=== PATIENT | female | born 1965 | race Caucasian/White ===

== ENCOUNTER 2017-06-01 15:24 | Inpatient (IN) | payer BC ==
[~2017-06-01] VITALS: Ht 154.9 cm; Wt 77.1 kg
[2017-06-01 16:40] LABS: BASO # 0.1 x10^3/uL (0.0-0.2); BASO % 0 % (0-3); EOS % 1 % (0-3); HEMATOCRIT 32.8 % (36.0-47.0); HEMOGLOBIN 10.7 g/dL (12.0-15.5); LYMPH # 1.7 x10^3/uL (1.0-4.8); LYMPH % 13 % (24-48); MEAN CORPUSCULAR HEMOGLOBIN 26 pg (25-35); MEAN CORPUSCULAR HGB CONC 33 g/dL (31-37); MEAN CORPUSCULAR VOLUME 81 fL (79-100); MONO % 4 % (0-9); NEUT % 81 % (31-73); PLATELET COUNT 373 x10^3/uL (140-400); RED BLOOD COUNT 4.08 x10^6/uL (3.50-5.40); RED CELL DISTRIBUTION WIDTH 17.5 % (11.5-14.5); WHITE BLOOD COUNT 12.9 x10^3/uL (4.0-11.0)
[2017-06-01 16:49] LABS: INR 0.9 (0.8-1.1); PROTHROMBIN TIME PATIENT 11.2 SEC (11.7-14.0)
--- NOTE | 2017-06-01 16:50 | RAD ---
Indication change in mental status. Protocol study. Noncontrast images of the head were obtained. No prior imaging of the head is available. The calvarium appears unremarkable. The visualized paranasal sinuses appear normal. There is no subdural or epidural hematoma. There is no mass or midline shift. No hemorrhage is seen. No acute intracranial finding is apparent. IMPRESSION: No acute or significant finding seen in the head. PQRS Compliance Statement: One or more of the following individualized dose reduction techniques were utilized for this examination: 1. Automated exposure control 2. Adjustment of the mA and/or kV according to patient size 3. Use of iterative reconstruction technique
[2017-06-01 16:55] LABS: CALCIUM 9.2 mg/dL (8.5-10.1); GFR 58.9
[2017-06-01 17:00] LABS: ALBUMIN 3.8 g/dL (3.4-5.0); MAGNESIUM 1.5 mg/dL (1.8-2.4); TOTAL BILIRUBIN 0.1 mg/dL (0.2-1.0); TOTAL PROTEIN 7.5 g/dL (6.4-8.2)
[2017-06-01] MEDS ORDERED: ONDANSETRON PF 4 MG/2 ML VIAL. IV PRN (17:45)
--- NOTE | 2017-06-01 17:50 | PHYS DOC ---
Past Medical History Past Medical History: Anemia, Hypertension Past Surgical History: , Hysterectomy, Tonsillectomy, Tubal ligation Additional Information: 1/2 PK A DAY Alcohol Use: None Drug Use: None Adult General Chief Complaint Chief Complaint: SYNCOPE HPI HPI Patient is a 51 year old female presenting to the emergency department for a constellation of symptoms of altered mental status left arm numbness and weakness left leg weakness. Patient reportedly had a black out episode where she has remember anything for an hour while she was being taken to [place] and eating a Anpro[employer] she does not remember any of this although family says that she was acting normal. This numbness weakness of the left arm is quite ambiguous as patient says she woke up with the symptoms however then she said it was during her black out episode but I asked how she would know if she was having weakness and numbness while she was blacked out. Then she changed it back to his sometime before the blackout episode but after the morning. She has risk factors of diabetes and smoking with prior TIA in the past and she takes a baby dose of aspirin daily. Review of Systems Review of Systems Constitutional: Denies fever or chills [] Eyes: Denies change in visual acuity, redness, or eye pain [] HENT: Denies nasal congestion or sore throat [] Respiratory: Denies cough or shortness of breath [] Cardiovascular: No additional information not addressed in HPI [] GI: Denies abdominal pain, nausea, vomiting, bloody stools or diarrhea [] : Denies dysuria or hematuria [] Musculoskeletal: Denies back pain or joint pain [] Integument: Denies rash or skin lesions [] Neurologic: Denies headache, + weakness, sensory changes [] Physical Exam Physical Exam Constitutional: Well developed, well nourished, no acute distress, non-toxic appearance. [] HENT: Normocephalic, atraumatic, bilateral external ears normal, oropharynx moist, no oral exudates, nose normal. [] Eyes: PERRLA, EOMI, conjunctiva normal, no discharge. [] Neck: Normal range of motion, no tenderness, supple, no stridor. [] Cardiovascular:Heart rate regular rhythm, no murmur [] Lungs & Thorax: Bilateral breath sounds clear to auscultation [] Abdomen: Bowel sounds normal, soft, no tenderness, no masses, no pulsatile masses. [] Skin: Warm, dry, no erythema, no rash. [] Back: No tenderness, no CVA tenderness. [] Extremities: No tenderness, no cyanosis, no clubbing, ROM intact, no edema. [] Neurologic: Alert and oriented X 3, left tech intern slightly decreased compared to right. Dullness diffusely to sensation in the left arm. Finger to nose and heel to sun are normal. Current Patient Data Vital Signs Vital Signs Date Time Temp Pulse Resp B/P (MAP) Pulse Ox O2 Delivery O2 Flow Rate FiO2 06/01/17 16:14 98.3 90 16 191/86 (121) 98 Room Air 98.3 Lab Values Laboratory Tests Test 06/01/17 16:01 06/01/17 16:08 Glucose (Fingerstick) 153 mg/dL (70-99) H White Blood Count 12.9 x10^3/uL (4.0-11.0) H Red Blood Count 4.08 x10^6/uL (3.50-5.40) Hemoglobin 10.7 g/dL (12.0-15.5) L Hematocrit 32.8 % (36.0-47.0) L Mean Corpuscular Volume 81 fL (79-100) Mean Corpuscular Hemoglobin 26 pg (25-35) Mean Corpuscular Hemoglobin Concent 33 g/dL (31-37) Red Cell Distribution Width 17.5 % (11.5-14.5) H Platelet Count 373 x10^3/uL (140-400) Neutrophils (%) (Auto) 81 % (31-73) H Lymphocytes (%) (Auto) 13 % (24-48) L Monocytes (%) (Auto) 4 % (0-9) Eosinophils (%) (Auto) 1 % (0-3) Basophils (%) (Auto) 0 % (0-3) Neutrophils # (Auto) 10.4 x10^3uL (1.8-7.7) H Lymphocytes # (Auto) 1.7 x10^3/uL (1.0-4.8) Monocytes # (Auto) 0.6 x10^3/uL (0.0-1.1) Eosinophils # (Auto) 0.1 x10^3/uL (0.0-0.7) Basophils # (Auto) 0.1 x10^3/uL (0.0-0.2) Prothrombin Time 11.2 SEC (11.7-14.0) L Prothrombin Time INR 0.9 (0.8-1.1) PTT 29 SEC (24-38) Sodium Level 137 mmol/L (136-145) Potassium Level 4.0 mmol/L (3.5-5.1) Chloride Level 99 mmol/L (98-107) Carbon Dioxide Level 28 mmol/L (21-32) Anion Gap 10 (6-14) Blood Urea Nitrogen 10 mg/dL (7-20) Creatinine 1.0 mg/dL (0.6-1.0) Estimated GFR (Cockcroft-Gault) 58.9 BUN/Creatinine Ratio 10 (6-20) Glucose Level 106 mg/dL (70-99) H Calcium Level 9.2 mg/dL (8.5-10.1) Magnesium Level 1.5 mg/dL (1.8-2.4) L Total Bilirubin 0.1 mg/dL (0.2-1.0) L Aspartate Amino Transferase (AST) 13 U/L (15-37) L Alanine Aminotransferase (ALT) 20 U/L (14-59) Alkaline Phosphatase 88 U/L (46-116) Troponin I Quantitative < 0.017 ng/mL (0.000-0.055) EN-Dwx-Y-Type Natriuretic Peptide 234 pg/mL (0-124) H Total Protein 7.5 g/dL (6.4-8.2) Albumin 3.8 g/dL (3.4-5.0) Albumin/Globulin Ratio 1.0 (1.0-1.7) Thyroid Stimulating Hormone (TSH) 0.979 uIU/mL (0.358-3.74) Laboratory Tests 06/01/17 16:08 Laboratory Tests 06/01/17 16:08 EKG EKG Sinus rhythm at 87 bpm with normal axis no obvious ST elevation or depression and normal T waves. Radiology/Procedures Radiology/Procedures Indication change in mental status. Protocol study. Noncontrast images of the head were obtained. No prior imaging of the head is available. The calvarium appears unremarkable. The visualized paranasal sinuses appear normal. There is no subdural or epidural hematoma. There is no mass or midline shift. No hemorrhage is seen. No acute intracranial finding is apparent. IMPRESSION: No acute or significant finding seen in the head. PQRS Compliance Statement: One or more of the following individualized dose reduction techniques were utilized for this examination: 1. Automated exposure control 2. Adjustment of the mA and/or kV according to patient size 3. Use of iterative reconstruction technique DICTATED and SIGNED BY: RUSTY CHEEMA MD DATE: 06/01/17 7263 Course & Med Decision Making Course & Med Decision Making Patient with concerning symptoms for CVA. There is no accurate timeline on her symptoms so I do not want to give patient TPA. Patient has a NIH stroke scale of 2 based off sensation and left arm tech intern weakness. Patient will be admitted for further observation and treatment. Dragon Disclaimer Dragon Disclaimer This electronic medical record was generated, in whole or in part, using a voice recognition dictation system. Departure Departure Impression: Primary Impression: CVA (cerebral vascular accident) Additional Impressions: Elevated brain natriuretic peptide (BNP) level Leukocytosis Disposition: ADMITTED INPATIENT Admitting Physician: Other (REUSCH) Condition: STABLE Referrals: NO PCP (PCP) Problem Qualifiers Primary Impression: CVA (cerebral vascular accident) CVA mechanism: unspecified Qualified Codes: I63.9 - Cerebral infarction, unspecified ARABELLA RAGLAND DO Jun 01, 2017 17:50
[2017-06-01 18:01] LABS: BILIRUBIN,URINE NEGATIVE (NEG); GLUCOSE,URINE NEGATIVE (NEG); NITRITE,URINE NEGATIVE (NEG); PH,URINE 5.5; PROTEIN,URINE NEGATIVE (NEG-TRACE); UROBILINOGEN,URINE 0.2 mg/dL (0.2 mg/dL)
[2017-06-01 18:12] VITALS: BP 146/62
[2017-06-01 18:12] LABS: BACTERIA,URINE 0 /HPF (0-FEW); RBC,URINE 0 /HPF (0-2); SQUAMOUS EPITHELIAL CELL,UR FEW /LPF; WBC,URINE OCC /HPF (0-4)
--- NOTE | 2017-06-01 18:23 | EKG ---
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
[2017-06-01] MEDS ORDERED: ASPI-482 PO (20:59)
[2017-06-01] MEDS ORDERED: GLIP10TA13 PO (20:59)
[2017-06-01] MEDS ORDERED: INSU100I13 SQ (20:59)
[2017-06-01] MEDS ORDERED: METF-620 PO (20:59)
[2017-06-01] MEDS ORDERED: SIMV40TA PO (20:59)
[2017-06-01] MEDS ORDERED: DEXTROSE 50% 25 GM / 50ML DISP.SYRIN. IV PRN (21:45)
--- NOTE | 2017-06-01 22:15 | HP ---
ADMIT DATE: 06/01/2017 CHIEF COMPLAINT: Acute mental status changes. HISTORY OF PRESENT ILLNESS: The patient is a 51-year-old woman with diabetes mellitus who was brought in to the Emergency Room by her family after having episodes of altered mental status and collapse. She relates that she remembers going to [facility] with her and son to get supplies. She apparently was not acting quite right and family suspected that she may be low on her blood sugar. The patient herself actually does not remember any further details until an hour later. According to her family, however, they stopped at [facility] to give her some food. She apparently went into the bathroom and when she did not return, family went in and found her on the floor having urinated herself. She apparently was still out of sorts, groggy and decided to take her home. They gave her orange juice and she is did indeed slowly improve. When she realized what had happened, she had her family bring her to the Emergency Room. In the Emergency Room, blood sugar actually was high. She was back to her normal state. Nobody noticed the incident in the bathroom at [facility]. The patient herself relates that her blood sugar control is actually typically very tight, running under 100. More recently, she actually has switched jobs as she has moved back to [place] to be supportive to her father. She is now working days instead of nights, continuing on her 30 units of Lantus q.a.m. and noticing that her blood sugars drop to 40s and 50s frequently. PAST MEDICAL HISTORY: Diabetes mellitus. She also is on statin and aspirin in has been on lisinopril in the past. No heart history in her. FAMILY HISTORY: Positive for diabetes in father. SOCIAL HISTORY: Lives with her family. No toxic habits. ALLERGIES: No known drug allergies. MEDICATIONS: MAR reconciled with home medications. REVIEW OF SYSTEMS: Positive as per history of present illness. Her mental status now is completely back to baseline. She denies any nausea, vomiting, headaches, vision problems, dizziness or other issues in entire rest of organ system review. PHYSICAL EXAMINATION: VITAL SIGNS: From today show a blood pressure of 146/62, heart rate of 87, respiratory rate at 18. She is afebrile. GENERAL: This is a 51-year-old overweight woman, alert and oriented, in no acute distress. HEENT: Shows no scleral icterus. NECK: Supple, without any lymphadenopathy. LUNGS: Clear to auscultation bilaterally. HEART: Regular rate and rhythm. ABDOMEN: Has positive bowel sounds, soft, nontender. EXTREMITIES: Show no edema. SKIN: Warm, soft and dry without any lesions. LABORATORY DATA: CBC with a WBC of 12.9, hemoglobin 10.7, platelets of 373, MCV is 81. Chemistries with a BUN and creatinine of 10 and 1.0. Electrolytes within normal limits. Mag at 1.5. Liver function tests within normal, albumin at 3.8. Initial glucose fingerstick 153, repeat on blood was 106. UA negative for infection. IMAGING: CT of the head showed no acute findings. ASSESSMENT AND PLAN: The patient is a 51-year-old diabetic with rather tight control who now presents with an episode of altered mental status. My strong suspicion is that this was a hypoglycemic episode. Unfortunately, did not check her fingersticks at home or bring her to the Emergency Room. In the Emergency Room, blood sugars had recovered. Although she had urinary incontinence with this episode, I seriously doubt that this constitutes a seizure. We will monitor her blood sugars closely from here on out. She clearly is somewhat overdosed on all her medications. She would like to get rid of Lantus if at all possible. We will have it for now and monitor closely with insulin sliding scale. We will obtain hemoglobin A1c as well. She relates that she has been on the same dose even when she was working nights, i.e. sleeping during the day. My suspicion is that she is just now aware of her hypoglycemic episodes as in the past she was probably asleep during the events. We will continue all her other home medications. She has not been on lisinopril really recently, mistaking Zocor for its replacement. I discussed the medications with her and will start her back on lisinopril. TIFFANIE ANDERSON MD DR: PATTIE/nts JOB#: [id number] / [id number] BLAS
[2017-06-01] MEDS: SIMVASTATIN 40 MG TABLET. PO SCH ×2 (22:30→22:32)
[2017-06-01 23:35] VITALS: BP 140/89
[2017-06-02 03:00] VITALS: BP_SYST 135; BP_SYST 140; BP_DIAS 74; BP_DIAS 89
--- NOTE | 2017-06-02 04:08 | ACF ---
Admission Forms Criteria TELEMETRY CARE Telemetry Admission Guidelines (Place 'X' for any and all applicable criteria): Admission to telemetry [A] may be indicated for ANY ONE of the following(1)(2)(3 )(4)(5): [ ]I. Cardiac disease, including ANY ONE of the following (9)(10)(11)(12)(13 ): [ ]a) Postacute TX [ ]b) Low-risk patients with ST-segment elevation TX who have undergone successful percutaneous coronary intervention [ ]c) Unstable angina [ ]d) Suspected TX (until it is ruled out) [ ]e) Post cardiac surgery (first 48 to 72 hours unless complications occur) [ ]f) Acute arrhythmias (including significant tachycardia or bradycardia) [B] [ ]g) Firing of an implantable cardioverter defibrillator [C] [ ]h) Suspected pacemaker or implantable cardioverter defibrillator malfunction (10) [ ]i) New administration or adjustment of an antiarrhythmic drug [D ] [ ]j) Child admitted for acute congestive heart failure [ ]j) Long QT syndrome [ ]k) Advanced heart block (eg, second-degree Mobitz type II, third- degree heart block) [ ]l) Acute myocarditis or pericarditis [ ]m) Short-term (ambulatory or inpatient) monitoring after a cardiac procedure as indicated by ANY ONE of the following [E]: [ ]i) Electrophysiologic studies [ ]ii) Percutaneous coronary intervention with stent placement [ ]iii) Pacemaker placement with cardiac conduction defect [ ]iv) Implantable cardiac defibrillator placement [ ]II. Drug overdose or poisoning with substance that causes arrhythmias or QT prolongation (eg, phenothiazines, sympathomimetic agents, cyclic antidepressants, digitalis, antiarrhythmic drugs)(15) [ ]III. Short-term (ambulatory or inpatient) monitoring after therapeutic or diagnostic procedure requiring conscious sedation or anesthesia (eg, endoscopy, elective cardioversion) [X]IV. Acute cerebrovascular even[F](18) [ ]V. Massive blood transfusion (eg, at least 10 units of packed red blood cells in 24 hours) [ ]. Variceal bleeding after endoscopy, sclerotherapy, or IV vasopressin [ ]VII. Uncorrected electrolyte abnormalities associated with an increased risk of dangerous arrhythmia [G]; examples include [ ]a) Hyperkalemia with attributable ECG changes [ ]b) Potassium greater than 6.5 mmol/L (mEq/L) in a patient without history of chronic renal disease [ ]c) Prolonged QT attributed to hypokalemia, hypomagnesemia, or hypocalcemia [ ]VIII.Unexplained syncope or other neurologic event suspected of being due to arrhythmia due to a finding that increases risk; examples include(19)(20)(21): [ ]a) High-risk ECG findings (eg, bifascicular block, bradycardia, abnormal QT interval, ventricular pre- excitation) [ ]b) History of previous syncope due to arrhythmia [ ]c) Abnormal ventricular function (eg, reduced ejection fraction ) [ ]d) Exertional or supine syncope [ ]e) Concerning syncope characteristics (eg, sudden loss of consciousness without prodrome) [ ]f) Family history of sudden [ ]g) Use of arrhythmogenic medication [ ]h) Suspected cardiac ischemia [ ]i) Known channelopathy (eg, long QT syndrome, Brugada syndrome, or catecholaminergic paroxysmal ventricular tachycardia) [ ]j) Known structural heart disease (eg, hypertrophic cardiomyopathy , severe valvular disease) [ ]k) Palpitations preceding syncope The original [email or web address] content created by [email or web address] has been revised. The portions of the content which have been revised are identified through the use of italic text or in bold, and [employer] [facility] has neither reviewed nor approved the modified material. All other unmodified content is copyright [email or web address]. Please see references footnoted in the original [email or web address] edition 2015 Admission Criteria Met?: Yes ALEIDA RALPH Jun 02, 2017 04:08
[2017-06-02 05:29] LABS: BASO % 1 % (0-3); EOS % 3 % (0-3); HEMATOCRIT 30.5 % (36.0-47.0); HEMOGLOBIN 10.5 g/dL (12.0-15.5); LYMPH # 2.3 x10^3/uL (1.0-4.8); LYMPH % 33 % (24-48); MEAN CORPUSCULAR HEMOGLOBIN 27 pg (25-35); MEAN CORPUSCULAR HGB CONC 34 g/dL (31-37); MEAN CORPUSCULAR VOLUME 79 fL (79-100); MONO % 7 % (0-9); NEUT % 57 % (31-73); PLATELET COUNT 334 x10^3/uL (140-400); RED BLOOD COUNT 3.85 x10^6/uL (3.50-5.40); RED CELL DISTRIBUTION WIDTH 17.8 % (11.5-14.5); WHITE BLOOD COUNT 6.9 x10^3/uL (4.0-11.0)
[2017-06-02 05:51] LABS: CALCIUM 8.6 mg/dL (8.5-10.1); CREATININE 0.9 mg/dL (0.6-1.0); GFR 66.5; POTASSIUM 3.6 mmol/L (3.5-5.1)
[2017-06-02 06:51] VITALS: BP 129/72
[2017-06-02] MEDS ORDERED: INSULIN DETEMIR 300 UNITS/3 ML INSULN.PEN. SQ SCH (07:30)
--- NOTE | 2017-06-02 07:36 | RAD ---
Indication CVA. Protocol exam. A single view of the chest was obtained. No prior imaging of the chest is available. The heart, pulmonary vessels and mediastinum appear normal. The lungs are clear. There is no significant pleural fluid. There is no pneumothorax. IMPRESSION: Normal single view of the chest
[2017-06-02] MEDS: INSULIN ASPART 300 UNITS/3 ML INSULN.PEN SQ SCH ×2 (08:00→12:00)
[2017-06-02] MEDS: glipiZIDE 5 MG TABLET PO SCH ×2 (08:41→16:30)
[2017-06-02] MEDS ORDERED: ASPIRIN ENTERIC COATED 81 MG TABLET.DR. PO SCH (09:00)
[2017-06-02] MEDS ORDERED: LISINOPRIL 10 MG TABLET PO SCH (09:00)
[2017-06-02 11:26] VITALS: BP 127/62
[2017-06-02 14:53] VITALS: BP 130/79
--- NOTE | 2017-06-02 15:24 | RAD ---
INDICATION: Left-sided numbness and weakness. TECHNIQUE: Sagittal T1, axial T1, axial T2, axial FLAIR, axial T2 gradient, coronal T2, and diffusion imaging with ADC map was performed. Comparison is a CT head from one day earlier. FINDINGS: The ventricles and sulci are within normal limits for age. There is no acute intracranial hemorrhage or extra-axial fluid collection. There is no mass effect or midline shift. There is no restricted diffusion to suggest an acute infarct. Cervicomedullary junction is unremarkable. Thin rim of pituitary tissue is noted inferiorly within the sella. There is increased CSF within the sella. The sella does not appear expanded. Intracranial flow voids are preserved. There is minimal mucosal thickening in the paranasal sinuses. There is minimal nonspecific fluid in the optic sheaths. IMPRESSION: 1. No acute intracranial findings. 2. Thin rim of pituitary tissue on the floor the sella, with increased CSF in the sella and with fluid within the optic sheaths. These are nonspecific findings that can be associated with elevated intracranial pressures. Electronically signed by: Nehemiah Landa MD (06/02/2017 3:20 PM) [id number]
[2017-06-02] MEDS ORDERED: LISI10TA2 PO (16:19)
--- NOTE | 2017-06-02 18:52 | PDOC2 ---
NEUROLOGY CONSULT Date of Admission Date of Admission DATE: 06/02/17 TIME: 18:43 Reason for Consult Reason for Consult: IMPRESSION: Left UE numbness and weakness. Syncopal spell. Blackouts episodes. Hypoglycemia, glucose level 30. DM HTN HLD TIA Hx Smoking. Obesity. No evidence of acute CVA this time. RECOMMENDATIONS/PLAN: Brain MRI w/o contrast. ASA daily. Zocor 40 mg HS. Treat medical diseases. FU with PCP. FU with Neurology. HISTORY OF THE PRESENT ILLNESS: 51-y-old female patient with above medical diseases developed symptoms of left UE numbness and weakness to come to the ER of [facility] for evaluation. She stated she had TIA in the past, but different form this time of her numbness and weakness. Her right side was not involved. PAST MEDICAL HISTORY: Diabetes mellitus. She also is on statin and aspirin in has been on lisinopril in the past. No heart history in her. FAMILY HISTORY: Positive for diabetes in father. SOCIAL HISTORY: Lives with her family. She smokes 1/2 pack a day for about 10 years. ALLERGIES: No known drug allergies. MEDICATIONS: Refer to MAR. REVIEW OF SYSTEMS: Constitutional: No malnutrition, weight loss, cachexia. Head: No recent traumatic brain or head injury. Skin: No edema, or rash. Ear: No infection. Eyes: No vision loss or color blindness. Nose: No bleeding or purulent discharges. Hearing: No hearing decrease. Neck: No injury. Breast: No history of cancer, masses,or discharges. Cardiac: HTN, HLD. Pulmonary: No pneumonia, COPD. GI: No GI ulcer, GI bleeding. Urinary/genital: UTI. Endocrinologic: Diabetes Mellitus, obesity. Skeletomuscular: No muscular atrophy, deformity. Neurological: see HP. Psychiatric: Denies drug use/abuse. Otherwise, not [id number] review of systems. PHYSICAL EXAMINATION: General appearance is in subacute distress. HEENT: Normocephalic and nontraumatic. Eyes, nose, ears, and throat are unremarkable. Neck is supple. No lymphadenopathy. No bruits are heard over the carotid artery. No crepitus. Cardiovascular: S1, S2, regular rate and rhythm. Pulmonary: Clear to auscultation bilaterally. Abdomen: Bowel sounds are positive. Abdomen is soft, nontender, and nondistended. Extremities: No rash, lesions, or edema. No restriction of range of motion NEUROLOGICAL EXAMINATION: Alert Oriented to time, place and person. PERRL. EOMI. CN: no focal findings. Muscle tone: within normal. Muscle strength: 5- DTR: 2 Plantar reflex: Flexor response bilaterally Gait: not examined in bed. Sensory exam: no abnormal findings. No cerebellar signs elicited. F-T-N test accurate. Current Medications Current Medications Current Medications Ondansetron HCl (Zofran) 4 mg PRN Q8HRS PRN IV NAUSEA/VOMITING; Start 06/01/17 at 17:45; Stop 06/02/17 at 16:54; Status DC Aspirin (Ecotrin) 81 mg DAILY PO Last administered on 06/02/17 08:41; Start at 09:00; Stop 06/02/17 at 16:54; Status DC Metformin HCl (Glucophage) 1,000 mg BIDWMEALS PO Last administered on 08:41; Start 06/02/17 at 08:00; Stop 06/02/17 at 16:54; Status DC Simvastatin (Zocor) 40 mg QHS PO ; Start 06/01/17 at 22:00; Stop 06/02/17 at 16: 54; Status DC Glipizide (Glucotrol) 10 mg BIDBFRMEAL PO Last administered on 06/02/17 08:41 ; Start 06/02/17 at 07:30; Stop 06/02/17 at 16:54; Status DC Insulin Detemir (Levemir) 15 units DAILYAC SQ Last administered on 06/02/17 08 :47; Start 06/02/17 at 07:30; Stop 06/02/17 at 16:54; Status DC Insulin Aspart (NovoLOG) 0-5 UNITS TIDWMEALS SQ ; Start 06/02/17 at 08:00; Stop 06/02/17 at 16:54; Status DC Dextrose (Dextrose 50%-Water Syringe) 12.5 gm PRN Q15MIN PRN IV SEE COMMENTS Last administered on 06/02/17 12:17; Start 06/01/17 at 21:45; Stop 06/02/17 at 16:54; Status DC Lisinopril (Prinivil) 10 mg DAILY PO Last administered on 9/14/17at 08:41; Start 06/02/17 at 09:00; Stop 06/02/17 at 16:54; Status DC Active Scripts Active Lisinopril 10 Mg Tablet 10 Mg PO DAILY Reported Aspir 81 (Aspirin) 81 Mg Tablet.dr 81 Mg PO DAILY Zocor (Simvastatin) 40 Mg Tablet 1 Tab PO DAILY Glipizide 10 Mg Tablet 1 Tab PO BID Metformin Hcl 1,000 Mg Tablet 1,000 Mg PO BIDWMEALS Allergies Allergies: Coded Allergies: No Known Drug Allergies (Unverified , 06/01/17) Vitals VITALS Vital Signs Date Time Temp Pulse Resp B/P (MAP) Pulse Ox O2 Delivery O2 Flow Rate FiO2 06/02/17 14:53 97.4 69 18 130/79 (96) 95 Room Air 97.4 Labs Labs Laboratory Tests Test 06/01/17 16:01 06/01/17 16:08 06/01/17 17:35 06/02/17 04:20 Glucose (Fingerstick) 153 mg/dL (70-99) White Blood Count 12.9 x10^3/uL (4.0-11.0) 6.9 x10^3/uL (4.0-11.0) Red Blood Count 4.08 x10^6/uL (3.50-5.40) 3.85 x10^6/uL (3.50-5.40) Hemoglobin 10.7 g/dL (12.0-15.5) 10.5 g/dL (12.0-15.5) Hematocrit 32.8 % (36.0-47.0) 30.5 % (36.0-47.0) Mean Corpuscular Volume 81 fL (79-100) 79 fL (79-100) Mean Corpuscular Hemoglobin 26 pg (25-35) 27 pg (25-35) Mean Corpuscular Hemoglobin Concent 33 g/dL (31-37) 34 g/dL (31-37) Red Cell Distribution Width 17.5 % (11.5-14.5) 17.8 % (11.5-14.5) Platelet Count 373 x10^3/uL (140-400) 334 x10^3/uL (140-400) Neutrophils (%) (Auto) 81 % (31-73) 57 % (31-73) Lymphocytes (%) (Auto) 13 % (24-48) 33 % (24-48) Monocytes (%) (Auto) 4 % (0-9) 7 % (0-9) Eosinophils (%) (Auto) 1 % (0-3) 3 % (0-3) Basophils (%) (Auto) 0 % (0-3) 1 % (0-3) Neutrophils # (Auto) 10.4 x10^3uL (1.8-7.7) 3.9 x10^3uL (1.8-7.7) Lymphocytes # (Auto) 1.7 x10^3/uL (1.0-4.8) 2.3 x10^3/uL (1.0-4.8) Monocytes # (Auto) 0.6 x10^3/uL (0.0-1.1) 0.5 x10^3/uL (0.0-1.1) Eosinophils # (Auto) 0.1 x10^3/uL (0.0-0.7) 0.2 x10^3/uL (0.0-0.7) Basophils # (Auto) 0.1 x10^3/uL (0.0-0.2) 0.0 x10^3/uL (0.0-0.2) Prothrombin Time 11.2 SEC (11.7-14.0) Prothromb Time International Ratio 0.9 (0.8-1.1) Activated Partial Thromboplast Time 29 SEC (24-38) Sodium Level 137 mmol/L (136-145) 144 mmol/L (136-145) Potassium Level 4.0 mmol/L (3.5-5.1) 3.6 mmol/L (3.5-5.1) Chloride Level 99 mmol/L (98-107) 104 mmol/L (98-107) Carbon Dioxide Level 28 mmol/L (21-32) 30 mmol/L (21-32) Anion Gap 10 (6-14) 10 (6-14) Blood Urea Nitrogen 10 mg/dL (7-20) 11 mg/dL (7-20) Creatinine 1.0 mg/dL (0.6-1.0) 0.9 mg/dL (0.6-1.0) Estimated GFR (Cockcroft-Gault) 58.9 66.5 BUN/Creatinine Ratio 10 (6-20) Glucose Level 106 mg/dL (70-99) 69 mg/dL (70-99) Calcium Level 9.2 mg/dL (8.5-10.1) 8.6 mg/dL (8.5-10.1) Magnesium Level 1.5 mg/dL (1.8-2.4) Total Bilirubin 0.1 mg/dL (0.2-1.0) Aspartate Amino Transf (AST/SGOT) 13 U/L (15-37) Alanine Aminotransferase (ALT/SGPT) 20 U/L (14-59) Alkaline Phosphatase 88 U/L (46-116) Troponin I Quantitative < 0.017 ng/mL (0.000-0.055) BH-Odh-K-Type Natriuretic Peptide 234 pg/mL (0-124) Total Protein 7.5 g/dL (6.4-8.2) Albumin 3.8 g/dL (3.4-5.0) Albumin/Globulin Ratio 1.0 (1.0-1.7) Thyroid Stimulating Hormone (TSH) 0.979 uIU/mL (0.358-3.74) Urine Collection Type Unknown Urine Color Yellow Urine Clarity Clear Urine pH 5.5 Urine Specific [place] <=1.005 Urine Protein Negative mg/dL (NEG-TRACE) Urine Glucose (UA) Negative mg/dL (NEG) Urine Ketones (Stick) Negative mg/dL (NEG) Urine Blood Negative (NEG) Urine Nitrite Negative (NEG) Urine Bilirubin Negative (NEG) Urine Urobilinogen Dipstick 0.2 mg/dL (0.2 mg/dL) Urine Leukocyte Esterase Negative (NEG) Urine RBC 0 /HPF (0-2) Urine WBC Occ /HPF (0-4) Urine Squamous Epithelial Cells Few /LPF Urine Bacteria 0 /HPF (0-FEW) Test 06/02/17 07:55 06/02/17 12:10 06/02/17 13:06 Glucose (Fingerstick) 90 mg/dL (70-99) 31 mg/dL (70-99) 153 mg/dL (70-99) Laboratory Tests Test 06/02/17 04:20 06/02/17 07:55 06/02/17 12:10 06/02/17 13:06 White Blood Count 6.9 x10^3/uL (4.0-11.0) Red Blood Count 3.85 x10^6/uL (3.50-5.40) Hemoglobin 10.5 g/dL (12.0-15.5) Hematocrit 30.5 % (36.0-47.0) Mean Corpuscular Volume 79 fL (79-100) Mean Corpuscular Hemoglobin 27 pg (25-35) Mean Corpuscular Hemoglobin Concent 34 g/dL (31-37) Red Cell Distribution Width 17.8 % (11.5-14.5) Platelet Count 334 x10^3/uL (140-400) Neutrophils (%) (Auto) 57 % (31-73) Lymphocytes (%) (Auto) 33 % (24-48) Monocytes (%) (Auto) 7 % (0-9) Eosinophils (%) (Auto) 3 % (0-3) Basophils (%) (Auto) 1 % (0-3) Neutrophils # (Auto) 3.9 x10^3uL (1.8-7.7) Lymphocytes # (Auto) 2.3 x10^3/uL (1.0-4.8) Monocytes # (Auto) 0.5 x10^3/uL (0.0-1.1) Eosinophils # (Auto) 0.2 x10^3/uL (0.0-0.7) Basophils # (Auto) 0.0 x10^3/uL (0.0-0.2) Sodium Level 144 mmol/L (136-145) Potassium Level 3.6 mmol/L (3.5-5.1) Chloride Level 104 mmol/L (98-107) Carbon Dioxide Level 30 mmol/L (21-32) Anion Gap 10 (6-14) Blood Urea Nitrogen 11 mg/dL (7-20) Creatinine 0.9 mg/dL (0.6-1.0) Estimated GFR (Cockcroft-Gault) 66.5 Glucose Level 69 mg/dL (70-99) Calcium Level 8.6 mg/dL (8.5-10.1) Glucose (Fingerstick) 90 mg/dL (70-99) 31 mg/dL (70-99) 153 mg/dL (70-99) ARTIE SHOOK MD Jun 02, 2017 18:52
== END 2017-06-02 16:41 | disposition home or self-care (01) | DRG 948 ==
LOC: ER 15:24 → 6 SOUTH 16:59
PROVIDERS: ADMIT Internal Medicine Hematology & Oncology; ATTEND Internal Medicine Hematology & Oncology
DX: R53.1 Weakness (principal); E11.649 Type 2 diabetes mellitus with hypoglycemia without coma; D72.829 Elevated white blood cell count, unspecified; E66.9 Obesity, unspecified; Z68.32 Body mass index [BMI] 32.0-32.9, adult; E78.5 Hyperlipidemia, unspecified; F17.210 Nicotine dependence, cigarettes, uncomplicated; I10 Essential (primary) hypertension; Z83.3 Family history of diabetes mellitus; Z86.73 Personal history of transient ischemic attack (TIA), and cerebral infarction without residual deficits; Z90.710 Acquired absence of both cervix and uterus; Z98.51 Tubal ligation status
CPT/HCPCS: 36415; 70450; 70551; 71010; 80048; 80053; 81001; 82962; 83036; 83735; 83880; 84443; 84484; 85025; 85610; 85730; 93005; J1815; J7042; 99285-25

== ENCOUNTER 2019-01-12 18:26 | Emergency (ER) | payer BC ==
[~2019-01-12] VITALS: Ht 154.9 cm; Wt 72.6 kg
[~2019-01-12 18:26] MED LIST: ASPI-482 PO; GLIP10TA13 PO; INSU100I13 SQ; LISI10TA2 PO; METF10007 PO; SIMV40TA PO
[2019-01-12 19:40] LABS: BILIRUBIN,URINE NEGATIVE (NEG); CLARITY,URINE CLEAR; COLOR,URINE YELLOW; NITRITE,URINE NEGATIVE (NEG); PH,URINE 5.5; PROTEIN,URINE NEGATIVE (NEG-TRACE); UROBILINOGEN,URINE 0.2 mg/dL (0.2 mg/dL)
[2019-01-12 19:40] LABS: BASO # 0.1 x10^3/uL (0.0-0.2); BASO % 1 % (0-3); EOS # 0.3 x10^3/uL (0.0-0.7); EOS % 3 % (0-3); HEMATOCRIT 31.9 % (36.0-47.0); HEMOGLOBIN 10.4 g/dL (12.0-15.5); LYMPH # 2.9 x10^3/uL (1.0-4.8); LYMPH % 30 % (24-48); MEAN CORPUSCULAR HEMOGLOBIN 23 pg (25-35); MEAN CORPUSCULAR HGB CONC 33 g/dL (31-37); MEAN CORPUSCULAR VOLUME 71 fL (79-100); MONO # 0.6 x10^3/uL (0.0-1.1); MONO % 6 % (0-9); NEUT # 5.9 x10^3uL (1.8-7.7); NEUT % 61 % (31-73); PLATELET COUNT 385 x10^3/uL (140-400); RED BLOOD COUNT 4.47 x10^6/uL (3.50-5.40); WHITE BLOOD COUNT 9.7 x10^3/uL (4.0-11.0)
[2019-01-12] MEDS ORDERED: ONDANSETRON PF 4 MG/2 ML VIAL. IV ONE (19:45)
[2019-01-12] MEDS ORDERED: fentaNYL PF VIAL 100 MCG/2 ML VIAL IV ONE ×3 (19:45→23:30)
[2019-01-12 19:48] LABS: CALCIUM 9.4 mg/dL (8.5-10.1); CREATININE 0.8 mg/dL (0.6-1.0); GFR 75.6
[2019-01-12 19:53] LABS: SQUAMOUS EPITHELIAL CELL,UR FEW /LPF
[2019-01-12 19:54] LABS: ALBUMIN/GLOBULIN RATIO 1.1 (1.0-1.7); TOTAL BILIRUBIN 0.2 mg/dL (0.2-1.0); TOTAL PROTEIN 7.7 g/dL (6.4-8.2)
[2019-01-12 19:55] LABS: BACTERIA,URINE 0 /HPF (0-FEW); RBC,URINE 0 /HPF (0-2); WBC,URINE OCC /HPF (0-4)
[2019-01-12 20:21] LABS: ANISOCYTOSIS SLIGHT; HYPOCHROMIA SLIGHT; MICROCYTOSIS MOD; PLT ESTIMATE ADEQUATE (ADEQUATE); POIKILOCYTOSIS SLIGHT
[2019-01-12 20:44] VITALS: BP 151/82
--- NOTE | 2019-01-12 21:20 | RAD ---
Clinical History: Right upper quadrant pain and nausea and vomiting for 3 days Technique: Sonographic examination of the right upper quadrant of the abdomen was performed and multiple static images were obtained. Comparison: none Findings: The majority of the liver is visualized and appears homogeneous. The common bile duct appears normal and measures 3.5 mm in diameter. The gallbladder appears normal. The pancreas is not well visualized due to overlying bowel gas. The right kidney measures 10.5 cm in length. There is lobulation consistent with cortical scar. The right renal pelvis is mildly prominent. Impression: Mild right hydronephrosis. No evidence of gallbladder disease. Electronically signed by: Samson Herrera III, MD (01/12/2019 9:17 PM) [facility]
--- NOTE | 2019-01-12 22:22 | RAD ---
Abdominal and Pelvis CT, Without Contrast: History: Right sided abdominal pain. Comparison: None. Procedure: Axial images are obtained of the abdomen and pelvis, without IV or oral contrast. CT Abdomen without Contrast: Findings: Evaluation of solid organs is limited without contrast. Evaluation of stomach and bowel is limited without oral contrast. Liver: Normal. Spleen: Normal. Pancreas: Normal. Adrenal Glands: Normal. Kidneys: Normal. There is no free air or free fluid. There is no lymphadenopathy. The appendix is normal. Impression: Please see CT Pelvis without Contrast. End Impression. CT Pelvis without Contrast: Findings: The urinary bladder appears normal. There is no free fluid. There is no lymphadenopathy. There is no pericolonic inflammation identified. Impression: No evidence of urolithiasis or obstructive uropathy. End impression PQRS Compliance Statement: One or more of the following individualized dose reduction techniques were utilized for this examination: 1. Automated exposure control 2. Adjustment of the mA and/or kV according to patient size 3. Use of iterative reconstruction technique Electronically signed by: Samson Herrera III, MD (01/12/2019 10:19 PM) [facility]
[2019-01-12] MEDS ORDERED: ONDA4TAB7 PO (23:26)
[2019-01-12] MEDS ORDERED: HYDR-3164 PO (23:26)
--- NOTE | 2019-01-12 23:26 | PHYS DOC ---
Past Medical History Past Medical History: Anemia, Diabetes-Type II, Hypertension, Other Additional Past Medical Histor: SLUDGE IN GALLBLADDER Past Surgical History: , Hysterectomy, Tonsillectomy, Tubal ligation Additional Information: 0.5 PPD Alcohol Use: None Drug Use: None Adult General Chief Complaint Chief Complaint: ABDOMINAL PAIN HPI HPI Patient is a 53 year old F who presents with R upper abd pain for the last 2-3 days. She states the pain wraps around to her back and does seem to be a lot worse after eating. She did have studies done in the past that showed gallbladder sludge but states she has not been able to follow up for any further treatment. Pt denies vomiting or diarrhea. She has been nauseated. She denies fever. Review of Systems Review of Systems Constitutional: Denies fever or chills [] Eyes: Denies change in visual acuity, redness, or eye pain [] HENT: Denies nasal congestion or sore throat [] Respiratory: Denies cough or shortness of breath [] Cardiovascular: No additional information not addressed in HPI [] GI: Reports abdominal pain and nausea. Denies constipation or diarrhea. : Denies dysuria or hematuria [] Musculoskeletal: Denies back pain or joint pain [] Integument: Denies rash or skin lesions [] Neurologic: Denies headache, focal weakness or sensory changes [] All other systems were reviewed and found to be within normal limits, except as documented in this note. Current Medications Current Medications Current Medications Medications (Trade) Dose Ordered Sig/Radha Start Time Stop Time Status Last Admin Dose Admin Fentanyl Citrate (Fentanyl 2ml Vial) 50 mcg 1X ONCE 01/12/19 23:30 01/12/19 23:31 DC 01/12/19 23:51 50 MCG Ondansetron HCl (Zofran) 4 mg 1X ONCE 01/12/19 19:45 01/12/19 19:46 DC 01/12/19 19:40 4 MG Allergies Allergies Allergies Coded Allergies Type Severity Reaction Last Updated Verified No Known Drug Allergies 06/01/17 No Physical Exam Physical Exam Constitutional: Well developed, well nourished, no acute distress, non-toxic appearance. Uncomfortable. HENT: Normocephalic, atraumatic, bilateral external ears normal, oropharynx moist, no oral exudates, nose normal. [] Eyes: PERRLA, EOMI, conjunctiva normal, no discharge. [] Neck: Normal range of motion, no tenderness, supple, no stridor. [] Cardiovascular:Heart rate regular rhythm, no murmur [] Lungs & Thorax: Bilateral breath sounds clear to auscultation [] Abdomen: Bowel sounds normal, soft. Tender to palpation over RUQ and around to back. Skin: Warm, dry, no erythema, no rash. [] Back: No tenderness. [] Extremities: No tenderness, no cyanosis, no clubbing, ROM intact, no edema. [] Neurologic: Alert and oriented X 3, normal motor function, normal sensory function, no focal deficits noted. [] Psychologic: Affect normal, judgement normal, mood normal. [] Current Patient Data Vital Signs Vital Signs Date Time Temp Pulse Resp B/P (MAP) Pulse Ox O2 Delivery O2 Flow Rate FiO2 01/12/19 23:51 18 96 Room Air 01/12/19 20:44 66 151/82 (105) 01/12/19 19:04 98.3 98.3 Lab Values Laboratory Tests Test 01/12/19 19:05 01/12/19 19:22 Urine Collection Type Unknown Urine Color Yellow Urine Clarity Clear Urine pH 5.5 Urine Specific [place] <=1.005 Urine Protein Negative mg/dL (NEG-TRACE) Urine Glucose (UA) Negative mg/dL (NEG) Urine Ketones (Stick) Negative mg/dL (NEG) Urine Blood Negative (NEG) Urine Nitrite Negative (NEG) Urine Bilirubin Negative (NEG) Urine Urobilinogen Dipstick 0.2 mg/dL (0.2 mg/dL) Urine Leukocyte Esterase Negative (NEG) Urine RBC 0 /HPF (0-2) Urine WBC Occ /HPF (0-4) Urine Squamous Epithelial Cells Few /LPF Urine Bacteria 0 /HPF (0-FEW) White Blood Count 9.7 x10^3/uL (4.0-11.0) Red Blood Count 4.47 x10^6/uL (3.50-5.40) Hemoglobin 10.4 g/dL (12.0-15.5) L Hematocrit 31.9 % (36.0-47.0) L Mean Corpuscular Volume 71 fL (79-100) L Mean Corpuscular Hemoglobin 23 pg (25-35) L Mean Corpuscular Hemoglobin Concent 33 g/dL (31-37) Red Cell Distribution Width 19.0 % (11.5-14.5) H Platelet Count 385 x10^3/uL (140-400) Neutrophils (%) (Auto) 61 % (31-73) Lymphocytes (%) (Auto) 30 % (24-48) Monocytes (%) (Auto) 6 % (0-9) Eosinophils (%) (Auto) 3 % (0-3) Basophils (%) (Auto) 1 % (0-3) Neutrophils # (Auto) 5.9 x10^3uL (1.8-7.7) Lymphocytes # (Auto) 2.9 x10^3/uL (1.0-4.8) Monocytes # (Auto) 0.6 x10^3/uL (0.0-1.1) Eosinophils # (Auto) 0.3 x10^3/uL (0.0-0.7) Basophils # (Auto) 0.1 x10^3/uL (0.0-0.2) Platelet Estimate Adequate (ADEQUATE) Hypochromasia Slight Poikilocytosis Slight Anisocytosis Slight Microcytosis Mod Crenated Cell Present Sodium Level 133 mmol/L (136-145) L Potassium Level 4.0 mmol/L (3.5-5.1) Chloride Level 97 mmol/L (98-107) L Carbon Dioxide Level 23 mmol/L (21-32) Anion Gap 13 (6-14) Blood Urea Nitrogen 9 mg/dL (7-20) Creatinine 0.8 mg/dL (0.6-1.0) Estimated GFR (Cockcroft-Gault) 75.6 BUN/Creatinine Ratio 11 (6-20) Glucose Level 99 mg/dL (70-99) Calcium Level 9.4 mg/dL (8.5-10.1) Total Bilirubin 0.2 mg/dL (0.2-1.0) Aspartate Amino Transferase (AST) 15 U/L (15-37) Alanine Aminotransferase (ALT) 20 U/L (14-59) Alkaline Phosphatase 97 U/L (46-116) Total Protein 7.7 g/dL (6.4-8.2) Albumin 4.0 g/dL (3.4-5.0) Albumin/Globulin Ratio 1.1 (1.0-1.7) Lipase 126 U/L (73-393) Laboratory Tests 01/12/19 19:22 Laboratory Tests 01/12/19 19:22 EKG EKG [] Radiology/Procedures Radiology/Procedures US: normal gallbladder, hydronephrosis noted CT: No acute findings. Course & Med Decision Making Course & Med Decision Making Pertinent Labs and Imaging studies reviewed. (See chart for details) Pt feeling better while in ER after pain and nausea medicine and fluids. Pt's labs and imaging reassuring. Long discussion with pt about how the gallbladder imaging today looks ok but this doesn't mean gallbladder is functioning properly. Discussed possible need for HIDA scan and with her hx of gallbladder sludge a follow up with general surgery. Name and number provided. Pt to follow low fat gallbladder diet and return if symptoms worsen at anytime. Dragon Disclaimer Dragon Disclaimer This electronic medical record was generated, in whole or in part, using a voice recognition dictation system. Departure Departure Impression: Primary Impression: Abdominal pain Disposition: HOME, SELF-CARE Condition: IMPROVED Referrals: HECTOR NOGUEIRA MD (PCP) JUAN MCGOWAN MD Patient Instructions: Abdominal Pain Additional Instructions: Follow gallbladder diet and follow up with surgery. Scripts Hydrocodone/Apap 5-325 (NORCO 5-325 TABLET) 1 Each Tablet 1-2 TAB PO Q4-6HRS PRN for PAIN, #16 TAB Prov: SEE LANDAVERDE 01/12/19 Ondansetron Hcl (ZOFRAN) 4 Mg Tablet 1 TAB PO Q6HRS PRN for NAUSEA/VOMITING, #16 TAB Prov: SEE LANDAVERDE 01/12/19 SEE LANDAVERDE Jan 12, 2019 23:26
--- NOTE | 2019-01-15 07:58 | EKG ---
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
== END 2019-01-13 00:01 | disposition home or self-care (01) ==
LOC: ER 18:26
DX: R10.11 Right upper quadrant pain (principal); R11.0 Nausea; E11.9 Type 2 diabetes mellitus without complications; I10 Essential (primary) hypertension; F17.200 Nicotine dependence, unspecified, uncomplicated; Z98.890 Other specified postprocedural states; Z90.710 Acquired absence of both cervix and uterus; Z90.89 Acquired absence of other organs; Z98.51 Tubal ligation status
CPT/HCPCS: 36415; 74176; 76705; 80053; 81001; 83690; 85025; 93005; 96374; 96375; 96376; 99285; J2405; J3010

== ENCOUNTER 2019-09-22 15:36 | Emergency (ER) | payer BC ==
[~2019-09-22] VITALS: Ht 154.9 cm; Wt 74.8 kg
[~2019-09-22 15:36] MED LIST changes: +HYDR-3164 PO; +ONDA4TAB7 PO
[2019-09-22] MEDS ORDERED: IV NORMAL SALINE 1000ML BAG 1,000 ML IV ONE (16:00)
[2019-09-22 16:04] LABS: BASO # 0.1 x10^3/uL (0.0-0.2); BASO % 1 % (0-3); EOS # 0.1 x10^3/uL (0.0-0.7); EOS % 2 % (0-3); HEMATOCRIT 32.7 % (36.0-47.0); HEMOGLOBIN 10.4 g/dL (12.0-15.5); LYMPH # 1.5 x10^3/uL (1.0-4.8); LYMPH % 19 % (24-48); MEAN CORPUSCULAR HEMOGLOBIN 23 pg (25-35); MEAN CORPUSCULAR HGB CONC 32 g/dL (31-37); MEAN CORPUSCULAR VOLUME 72 fL (79-100); MONO # 0.5 x10^3/uL (0.0-1.1); MONO % 6 % (0-9); NEUT # 5.7 x10^3/uL (1.8-7.7); NEUT % 72 % (31-73); PLATELET COUNT 403 x10^3/uL (140-400); RED BLOOD COUNT 4.55 x10^6/uL (3.50-5.40); RED CELL DISTRIBUTION WIDTH 17.2 % (11.5-14.5); WHITE BLOOD COUNT 7.9 x10^3/uL (4.0-11.0)
--- NOTE | 2019-09-22 16:05 | PHYS DOC ---
Past Medical History Past Medical History: Anemia, Diabetes-Type II, Hypertension, Other Additional Past Medical Histor: SLUDGE IN GALLBLADDER Past Surgical History: , Hysterectomy, Tonsillectomy, Tubal ligation Smokin Pack Per Day Alcohol Use: None Drug Use: None Adult General Chief Complaint Chief Complaint: DIZZY/LIGHT HEADED HPI HPI Patient is a 54-year-old female with past medical history of hypertension diabetes is presenting to the emergency department with 1 week of dizziness. Patient states that she also has a history of right-sided facial numbness and facial droop that has been seen and she is currently being worked up for a different hospital, she states that this has not changed. Patient states that she is also experiencing some tinnitus along with her dizziness, she has episodes of dizziness that last about a minute and then go away, she is not dizzy currently. Patient states that she also has a headache right now, she has a history of migraines and this feels similar to her normal migraines. Patient denies any recent nausea, vomiting, abdominal pain, constipation, diarrhea, fever, chills, chest pain, and shortness of breath. Patient denies any recent trauma. Review of Systems Review of Systems Constitutional: Denies fever or chills Eyes: Denies redness or eye pain HENT: Denies nasal congestion or sore throat Respiratory: Denies cough or shortness of breath Cardiovascular: Denies chest pain or palpitations GI: Denies abdominal pain, nausea, or vomiting : Denies dysuria or hematuria Musculoskeletal: Denies back pain or joint pain Integument: Denies rash or skin lesions Neurologic: Reports dizziness and headache Complete systems were reviewed and found to be within normal limits, except as documented in this note. Current Medications Current Medications Current Medications Medications (Trade) Dose Ordered Sig/Radha Start Time Stop Time Status Last Admin Dose Admin Dexamethasone (Decadron) 10 mg 1X ONCE 09/22/19 16:15 09/22/19 16:16 DC 09/22/19 16:19 10 MG Ketorolac Tromethamine (Toradol 15mg Vial) 15 mg 1X ONCE 09/22/19 16:15 09/22/19 16:16 DC 09/22/19 16:18 15 MG Magnesium Chloride (Mag Delay) 64 mg 1X ONCE 09/22/19 16:45 09/22/19 16:46 DC 1/4/20 16:50 64 MG Metoclopramide HCl (Reglan Vial) 10 mg 1X ONCE 09/22/19 16:15 09/22/19 16:16 DC 09/22/19 16:19 10 MG Sodium Chloride 1,000 ml @ 1,000 mls/hr 1X ONCE 09/22/19 16:00 09/22/19 16:59 DC 09/22/19 16:16 1,000 MLS/HR Allergies Allergies Allergies Coded Allergies Type Severity Reaction Last Updated Verified No Known Drug Allergies 06/01/17 No Physical Exam Physical Exam Constitutional: Well developed, well nourished, no acute distress, non-toxic appearance HENT: Normocephalic, atraumatic, oropharynx moist Eyes: PERRL, EOMI, conjunctiva normal, no discharge Neck: Normal range of motion, no tenderness, supple Cardiovascular: Heart rate normal, regular rhythm Lungs & Thorax: Bilateral breath sounds clear to auscultation, no wheezing Abdomen: Soft, no tenderness Skin: Warm, dry, no erythema, no rash Back: No tenderness, no CVA tenderness Extremities: No tenderness, ROM intact, no edema Neurologic: Alert and oriented X 3, normal motor function, normal sensory function, no focal deficits noted Psychologic: Affect normal, judgement normal, mood normal Current Patient Data Vital Signs Vital Signs Date Time Temp Pulse Resp B/P (MAP) Pulse Ox O2 Delivery O2 Flow Rate FiO2 09/22/19 15:56 97.9 78 16 194/91 (125) 98 Room Air 97.9 Lab Values Laboratory Tests Test 09/22/19 15:47 09/22/19 16:24 White Blood Count 7.9 x10^3/uL (4.0-11.0) Red Blood Count 4.55 x10^6/uL (3.50-5.40) Hemoglobin 10.4 g/dL (12.0-15.5) L Hematocrit 32.7 % (36.0-47.0) L Mean Corpuscular Volume 72 fL (79-100) L Mean Corpuscular Hemoglobin 23 pg (25-35) L Mean Corpuscular Hemoglobin Concent 32 g/dL (31-37) Red Cell Distribution Width 17.2 % (11.5-14.5) H Platelet Count 403 x10^3/uL (140-400) H Neutrophils (%) (Auto) 72 % (31-73) Lymphocytes (%) (Auto) 19 % (24-48) L Monocytes (%) (Auto) 6 % (0-9) Eosinophils (%) (Auto) 2 % (0-3) Basophils (%) (Auto) 1 % (0-3) Neutrophils # (Auto) 5.7 x10^3/uL (1.8-7.7) Lymphocytes # (Auto) 1.5 x10^3/uL (1.0-4.8) Monocytes # (Auto) 0.5 x10^3/uL (0.0-1.1) Eosinophils # (Auto) 0.1 x10^3/uL (0.0-0.7) Basophils # (Auto) 0.1 x10^3/uL (0.0-0.2) Platelet Estimate Pending Prothrombin Time 12.5 SEC (11.7-14.0) Prothrombin Time INR 1.0 (0.8-1.1) Activated Partial Thromboplast Time 30 SEC (24-38) Sodium Level 139 mmol/L (136-145) Potassium Level 3.7 mmol/L (3.5-5.1) Chloride Level 100 mmol/L (98-107) Carbon Dioxide Level 25 mmol/L (21-32) Anion Gap 14 (6-14) Blood Urea Nitrogen 8 mg/dL (7-20) Creatinine 0.9 mg/dL (0.6-1.0) Estimated GFR (Cockcroft-Gault) 65.8 BUN/Creatinine Ratio 9 (6-20) Glucose Level 103 mg/dL (70-99) H Calcium Level 9.0 mg/dL (8.5-10.1) Magnesium Level 1.3 mg/dL (1.8-2.4) L Total Bilirubin 0.3 mg/dL (0.2-1.0) Aspartate Amino Transferase (AST) 12 U/L (15-37) L Alanine Aminotransferase (ALT) 14 U/L (14-59) Alkaline Phosphatase 90 U/L (46-116) Creatine Kinase 66 U/L (26-192) Creatine Kinase MB (Mass) 0.6 ng/mL (0.0-3.6) Creatine Kinase MB Relative Index % (0-4) Troponin I Quantitative < 0.017 ng/mL (0.000-0.055) Total Protein 7.5 g/dL (6.4-8.2) Albumin 3.7 g/dL (3.4-5.0) Albumin/Globulin Ratio 1.0 (1.0-1.7) Lipase 68 U/L (73-393) L Salicylates Level < 2.8 mg/dL (2.8-20.0) L Salicylate Last Dose Date Unknown Salicylate Last Dose Time Unknown Urine Collection Type Unknown Urine Color Yellow Urine Clarity Clear Urine pH 5.5 Urine Specific [place] <=1.005 Urine Protein Negative mg/dL (NEG-TRACE) Urine Glucose (UA) Negative mg/dL (NEG) Urine Ketones (Stick) Negative mg/dL (NEG) Urine Blood Negative (NEG) Urine Nitrite Negative (NEG) Urine Bilirubin Negative (NEG) Urine Urobilinogen Dipstick 0.2 mg/dL (0.2 mg/dL) Urine Leukocyte Esterase Small (NEG) Urine RBC 0 /HPF (0-2) Urine WBC 5-10 /HPF (0-4) Urine Squamous Epithelial Cells Mod /LPF Urine Bacteria Moderate /HPF (0-FEW) Laboratory Tests 09/22/19 15:47 Laboratory Tests 09/22/19 15:47 EKG EKG EKG at 1549 shows normal sinus rhythm 82 bpm, no ST elevations. Radiology/Procedures Radiology/Procedures PROCEDURE: CT HEAD WO CONTRAST CT brain without contrast. HISTORY: Dizziness CT scan of the brain was done without contrast. Sinuses are clear. There is no intracranial hemorrhage or subdural hematoma. There is no mass or shift of the midline. An acute CVA is not identified. Mastoids are normally aerated as is the middle ear on each side. Lateral ventricles are normal in size. IMPRESSION: 1. No intracranial hemorrhage or mass or acute finding noted. PQRS Compliance Statement: One or more of the following individualized dose reduction techniques were utilized for this examination: 1. Automated exposure control 2. Adjustment of the mA and/or kV according to patient size 3. Use of iterative reconstruction technique Electronically signed by: Canelo Rodas MD (09/22/2019 4:27 PM) [facility] Course & Med Decision Making Course & Med Decision Making Pertinent Labs and Imaging studies reviewed. (See chart for details) Patient is a 54-year-old female with past medical history of diabetes and hypert ension was presents emergency department with episodes of dizziness. Patient was seen and evaluated at bedside. Physical exam was significant for NIH stroke scale of 0, TMs normal bilateral, cardiovascular exam normal. Labs and imaging ordered. EKG at 1549 shows normal sinus rhythm 82 bpm, no ST elevations. Pain addressed. CT head negative. Magnesium low, replaced. Labs at baseline. UA likely contaminated, patient not describing any urinary symptoms. Patient stable for discharge with outpatient follow-up with PCP. Discussed findings and plan with patient, who acknowledges understanding and agreement. Dragon Disclaimer Dragon Disclaimer This electronic medical record was generated, in whole or in part, using a voice recognition dictation system. Departure Departure Impression: Primary Impression: Dizziness Additional Impressions: Hypomagnesemia Tinnitus Disposition: HOME, SELF-CARE Condition: STABLE Referrals: CANELO NOGUEIRA MD (PCP) DONTRELL DAVID MD Patient Instructions: Dizziness, [id number], Hypomagnesemia, Tinnitus Scripts Prednisone (PREDNISONE) 20 Mg Tablet 2 TAB PO DAILY, #8 TAB Start this presciption tomorrow, Tuesday09/23/19 Prov: STEVEN GRAY DO 09/22/19 Butalb/Acetaminophen/Caffeine ([id number] 50-325-40) 1 Each Tablet 1 EACH PO Q6HRS PRN for HEADACHE, #10 TAB 0 Refills Prov: STEVEN GRAY DO 09/22/19 NIHSS Stroke Scale NIH Stroke Scale: NIH Stroke Scale Response (Comments) Value Level of Consciousness: 0 Alert/Responsive 0 LOC Questions: 0 Answers both correctly 0 LOC Commands: 0 Performs both tasks 0 Best Gaze: 0 Normal 0 Visual: 0 No visual loss 0 Facial Palsy: 0 Normal, symmetrical 0 Motor - Left Arm 0 No drift 0 Motor - Right Arm 0 No drift 0 Motor - Left Leg 0 No drift 0 Motor: Right Leg 0 No drift 0 Limb Ataxia: 0 Absent 0 Sensory: 0 No loss 0 Best Language: 0 Normal 0 Dysathria: 0 Normal 0 Extinction and Inattention: 0 Normal 0 Total 0 Problem Qualifiers Additional Impressions: Tinnitus Laterality: unspecified laterality Qualified Codes: H93.19 - Tinnitus, unspecified ear STEVEN GRAY DO Sep 22, 2019 16:05
[2019-09-22 16:12] LABS: SALIC < 2.8 mg/dL (2.8-20.0)
[2019-09-22 16:13] LABS: CREATININE 0.9 mg/dL (0.6-1.0); GFR 65.8; POTASSIUM 3.7 mmol/L (3.5-5.1)
[2019-09-22 16:15] LABS: PROTHROMBIN TIME PATIENT 12.5 SEC (11.7-14.0)
[2019-09-22] MEDS ORDERED: METOCLOPRAMIDE HCL 10 MG/2 ML VIAL. IVP ONE (16:15)
[2019-09-22] MEDS ORDERED: KETOROLAC 15 MG/ML VIAL. IVP ONE (16:15)
[2019-09-22] MEDS ORDERED: DEXAMETHASONE 4 MG TABLET PO ONE (16:15)
[2019-09-22 16:20] LABS: ALBUMIN 3.7 g/dL (3.4-5.0); MAGNESIUM 1.3 mg/dL (1.8-2.4); TOTAL BILIRUBIN 0.3 mg/dL (0.2-1.0); TOTAL PROTEIN 7.5 g/dL (6.4-8.2)
[2019-09-22 16:27] LABS: CREATINE KINASE 66 U/L (26-192)
--- NOTE | 2019-09-22 16:30 | RAD ---
CT brain without contrast. HISTORY: Dizziness CT scan of the brain was done without contrast. Sinuses are clear. There is no intracranial hemorrhage or subdural hematoma. There is no mass or shift of the midline. An acute CVA is not identified. Mastoids are normally aerated as is the middle ear on each side. Lateral ventricles are normal in size. IMPRESSION: 1. No intracranial hemorrhage or mass or acute finding noted. RS Compliance Statement: One or more of the following individualized dose reduction techniques were utilized for this examination: 1. Automated exposure control 2. Adjustment of the mA and/or kV according to patient size 3. Use of iterative reconstruction technique Electronically signed by: Canelo Rodas MD (09/22/2019 4:27 PM) [facility]
[2019-09-22] MEDS ORDERED: MAGNESIUM CHLORIDE ER 64 MG TABLET.ER PO ONE (16:45)
[2019-09-22 16:47] LABS: BILIRUBIN,URINE NEGATIVE (NEG); CLARITY,URINE CLEAR; COLOR,URINE YELLOW; NITRITE,URINE NEGATIVE (NEG); PH,URINE 5.5; PROTEIN,URINE NEGATIVE (NEG-TRACE); UROBILINOGEN,URINE 0.2 mg/dL (0.2 mg/dL)
[2019-09-22 16:59] LABS: SQUAMOUS EPITHELIAL CELL,UR MOD /LPF
[2019-09-22 17:00] LABS: BACTERIA,URINE MODERATE /HPF (0-FEW); RBC,URINE 0 /HPF (0-2)
[2019-09-22] MEDS ORDERED: BUTA1TAB23 PO (17:24)
[2019-09-22 17:30] VITALS: BP 173/76
[2019-09-22] MEDS ORDERED: PRED20TA PO (17:32)
[2019-09-22 18:15] LABS: HYPOCHROMIA MOD; PLT ESTIMATE ADEQUATE (ADEQUATE); POIKILOCYTOSIS SLIGHT
[2019-09-22 18:16] LABS: ACANTHOCYTES OCC; ANISOCYTOSIS SLIGHT; MICROCYTOSIS MOD; OVALOCYTES OCC
--- NOTE | 2019-09-23 10:45 | EKG ---
[facility] [address] [place] [address] Test Date: 2019-09-22 Test Time: 15:49:26 Pat Name: ROXANNA MELENDEZ Department: Room: Gender: F Seat Maker: : [id number] Requested By: STEVEN GRAY Order Number: [id number] Reading MD: Measurements Intervals [place] Rate: 82 P: 40 MO: 136 QRS: 16 QRSD: 70 T: 71 QT: 376 QTc: 442 Interpretive Statements SINUS RHYTHM T ABNORMALITY IN HIGH LATERAL LEADS ABNORMAL ECG RI6.01 No previous ECG available for comparison
== END 2019-09-22 17:36 | disposition home or self-care (01) ==
LOC: ER 15:36
DX: E83.42 Hypomagnesemia (principal); R42 Dizziness and giddiness; H93.19 Tinnitus, unspecified ear; E11.9 Type 2 diabetes mellitus without complications; I10 Essential (primary) hypertension; F17.200 Nicotine dependence, unspecified, uncomplicated; Z90.710 Acquired absence of both cervix and uterus; Z90.89 Acquired absence of other organs; Z98.51 Tubal ligation status; Z98.890 Other specified postprocedural states; Z79.899 Other long term (current) drug therapy
CPT/HCPCS: 36415; 70450; 80053; 80329; 81001; 82553; 83690; 83735; 84484; 85025; 85610; 85730; 87086; 93005; 96361; 96374; 96375; 99285; J1885; J2765; J7030; J8540; G0480